=== PATIENT | male | born 1975 | race Caucasian/White ===

== ENCOUNTER 2023-02-06 07:31 | Day surgery (SDC) | payer OTHER ==
[2023-02-06] MEDS ORDERED: Sodium Chloride 0.9% 1,000 ML IV SCH (08:00)
[2023-02-06] MEDS ORDERED: Midazolam 1 MG/ML 2 ML SDV ONE (08:10)
[2023-02-06] MEDS ORDERED: fentaNYL 50 MCG/ML SDV ONE (08:10)
[2023-02-06] MEDS ORDERED: Propofol 200 MG/20 ML SDV ONE (08:11)
== END 2023-02-06 10:23 | disposition home or self-care (01) ==
LOC: JP.SDS 07:31
PROVIDERS: ATTEND Surgery
DX: Z12.11 Encounter for screening for malignant neoplasm of colon (principal); K21.9 Gastro-esophageal reflux disease without esophagitis; N41.1 Chronic prostatitis; Z79.899 Other long term (current) drug therapy
CPT/HCPCS: 45378; J2250; J2704; J3010; J7030

== ENCOUNTER 2023-03-06 07:58 | Day surgery (SDC) | payer OTHER ==
[2023-03-06] MEDS ORDERED: Acetaminophen 500 MG Tab PO ONE (08:00)
[2023-03-06] MEDS ORDERED: Bupivacaine 0.5% 50 ML MDV ONE (08:02)
[2023-03-06] MEDS ORDERED: Lidocaine 1% with EPINEPHrine 1:100,000 50 ML MDV ONE (08:02)
[2023-03-06] MEDS ORDERED: Bacitracin Oint 1 GM U/D Packet ONE (08:02)
[2023-03-06] MEDS ORDERED: Bupivacaine 0.5%/EPINEPHrine 1:200,000 50 ML MDV ONE (08:03)
[2023-03-06] MEDS ORDERED: Propofol 200 MG/20 ML SDV ONE (08:18)
[2023-03-06] MEDS ORDERED: fentaNYL 250 MCG/5 ML SDV ONE ×2 (08:18→11:32)
[2023-03-06] MEDS ORDERED: Neostigmine Methylsulfate 1 MG/ML 5 ML Syringe ONE (08:18)
[2023-03-06] MEDS ORDERED: Rocuronium 50 MG/5 ML Vial ONE ×2 (08:18→11:52)
[2023-03-06] MEDS ORDERED: Ondansetron 4 MG/2 ML SDV ONE (08:18)
[2023-03-06] MEDS ORDERED: Dexamethasone 4 MG/ML SDV ONE (08:18)
[2023-03-06] MEDS ORDERED: Glycopyrrolate 0.2 MG/ML 5 ML MDV ONE (08:18)
[2023-03-06] MEDS ORDERED: Succinylcholine 200 MG/10 ML MDV ONE (08:18)
[2023-03-06] MEDS ORDERED: Lactated Ringers 1,000 ML IV SCH (09:00)
[2023-03-06] MEDS ORDERED: ceFAZolin 2 GM in Premix Bag 1 BAG IV ONE (09:30)
[2023-03-06] MEDS ORDERED: Lactated Ringers 1,000 ML ONE (11:33)
[2023-03-06] MEDS ORDERED: fentaNYL 100 MCG/2 ML SDV ONE (12:43)
[2023-03-06] MEDS ORDERED: HYDROmorphone 0.5 MG/0.5 ML Syringe IVPUSH PRN (13:42)
[2023-03-06] MEDS ORDERED: HYDROmorphone 1 MG/ML Syringe IVPUSH PRN (13:48)
[2023-03-06] MEDS ORDERED: Acetaminophen/HYDROcodone 325-5 MG Tab PO PRN (14:20)
[2023-03-06] MEDS ORDERED: Ondansetron 4 MG/2 ML SDV IVPUSH ONE (15:56)
== END 2023-03-06 16:15 | disposition home or self-care (01) ==
LOC: JP.SDS 07:58
PROVIDERS: ATTEND Student in an Organized Health Care Education/Training Program
DX: K42.9 Umbilical hernia without obstruction or gangrene (principal); L82.1 Other seborrheic keratosis; E80.7 Disorder of bilirubin metabolism, unspecified; K21.9 Gastro-esophageal reflux disease without esophagitis; M10.9 Gout, unspecified
CPT/HCPCS: 88305; A9270-GY; C1781; J0330; J0690; J1100; J1170; J2405; J2704; J2710; J3010; J3490; J7120

== ENCOUNTER 2025-07-05 22:44 | Emergency (ER) | payer OTHER ==
[2025-07-05] MEDS ORDERED: Sodium Chloride 0.9% 10 ML Syringe FLUSH PRN (23:09)
[2025-07-05 23:18] LABS: BASOPHILS ABSOLUTE AUTO 0.03 K/uL (0.00-0.10); BASOPHILS PERCENT AUTO 0.2 % (0.1-1.3); EOSINOPHILS ABSOLUTE AUTO 0.18 K/uL (0.00-0.40); EOSINOPHILS PERCENT AUTO 1.4 % (0.0-5.4); IMMATURE GRAN ABSOLUTE AUTO 0.05 K/uL (0.00-0.23); IMMATURE GRAN PERCENT AUTO 0.4 % (0.0-0.7); LYMPHOCYTES ABSOLUTE AUTO 1.17 K/uL (0.8-3.3); LYMPHOCYTES PERCENT AUTO 8.8 % (11.4-47.7); MONOCYTES ABSOLUTE AUTO 1.03 K/uL (0.20-0.90); MONOCYTES PERCENT AUTO 7.8 % (3.3-12.6); NEUTROPHILS ABSOLUTE AUTO 10.77 K/uL (1.0-7.6); NEUTROPHILS PERCENT AUTO 81.4 % (40.0-78.1); PLATELET COUNT,PLT 171 K/uL (130-375); RED BLOOD CELL COUNT 4.92 M/uL (4.14-5.76); WHITE BLOOD CELL COUNT,WBC 13.2 K/uL (3.2-11.0)
[2025-07-05] MEDS: Iopamidol 612 MG/ML 100 ML Bottle IV SCH (23:36)
[2025-07-05] MEDS: Sodium Chloride 0.9% 10 ML Syringe FLUSH PRN (23:36)
[2025-07-05 23:39] LABS: A/G RATIO 1.3 (1.2-2.2); ALANINE AMINOTRANSFERASE,ALT 46 U/L (12-78); ASPARTATE AMNIOTRANSFERASE,AST 23 U/L (15-37); BILIRUBIN TOTAL 2.0 mg/dL (0.2-1.0); BLOOD UREA NITROGEN,BUN 15 mg/dL (7-18); CARBON DIOXIDE,CO2 29 mmol/L (21-32); CHLORIDE,CL 105 mmol/L (100-108); CREATININE 0.9 mg/dL (0.8-1.3); EST CRCL DRUG DOSING (CG) 102.52 mL/min; ESTIMATED GFR 105 mL/min (>60); GLUCOSE RANDOM 113 mg/dL (74-106); POTASSIUM,K 3.8 mmol/L (3.6-5.2); PROTEIN TOTAL,TP 7.3 g/dL (6.4-8.2); SODIUM,NA 140 mmol/L (140-148)
== END 2025-07-06 00:50 | disposition home or self-care (01) ==
LOC: JP.ED 22:44
DX: K37 Unspecified appendicitis (principal); N28.89 Other specified disorders of kidney and ureter
CPT/HCPCS: 36415; 74177; 80053; 83605; 83690; 85025; 96360; 99284; J7030; Q9967

== ENCOUNTER 2025-07-06 14:35 | Observation (INO) | payer OTHER ==
[2025-07-06] MEDS ORDERED: Scopalamine 1mg/3day Transdermal Patch TOP PRN (15:00)
[2025-07-06] MEDS ORDERED: diphenhydrAMINE 50 MG/ML SDV IVPUSH PRN (15:00)
[2025-07-06] MEDS ORDERED: fentaNYL 50 MCG/ML SDV IVPUSH PRN (15:00)
[2025-07-06] MEDS ORDERED: Ondansetron 4 MG/2 ML SDV IVPUSH PRN (15:00)
[2025-07-06] MEDS: Piperacillin/Tazobactam/Dext 4.5 GM in Premix Bag 1 BAG IV ONE (15:43)
[2025-07-06] MEDS: Piperacillin/Tazobactam/Dext 4.5 GM in Premix Bag 1 BAG IV SCH (20:30)
[2025-07-07 05:24] LABS: BASOPHILS PERCENT AUTO 0.3 % (0.1-1.3); EOSINOPHILS ABSOLUTE AUTO 0.27 K/uL (0.00-0.40); EOSINOPHILS PERCENT AUTO 4.0 % (0.0-5.4); IMMATURE GRAN PERCENT AUTO 0.3 % (0.0-0.7); LYMPHOCYTES ABSOLUTE AUTO 1.91 K/uL (0.8-3.3); LYMPHOCYTES PERCENT AUTO 28.0 % (11.4-47.7); MONOCYTES ABSOLUTE AUTO 0.83 K/uL (0.20-0.90); MONOCYTES PERCENT AUTO 12.2 % (3.3-12.6); NEUTROPHILS ABSOLUTE AUTO 3.76 K/uL (1.0-7.6); NEUTROPHILS PERCENT AUTO 55.2 % (40.0-78.1); PLATELET COUNT,PLT 154 K/uL (130-375); RED BLOOD CELL COUNT 4.62 M/uL (4.14-5.76); WHITE BLOOD CELL COUNT,WBC 6.8 K/uL (3.2-11.0)
[2025-07-07 05:34] LABS: BASOPHILS ABSOLUTE AUTO 0.02 K/uL (0.00-0.10); IMMATURE GRAN ABSOLUTE AUTO 0.02 K/uL (0.00-0.23)
[2025-07-07 05:45] LABS: BLOOD UREA NITROGEN,BUN 12.0 mg/dL (7-18); CARBON DIOXIDE,CO2 29.0 mmol/L (21-32); CHLORIDE,CL 108.0 mmol/L (100-108); CREATININE 1.1 mg/dL (0.8-1.3); EST CRCL DRUG DOSING (CG) 83.88 mL/min; ESTIMATED GFR 82.0 mL/min (>60); GLUCOSE RANDOM 105.0 mg/dL (74-106); POTASSIUM,K 4.1 mmol/L (3.6-5.2); SODIUM,NA 144.0 mmol/L (140-148)
[2025-07-07] MEDS ORDERED: Succinylcholine 200 MG/10 ML MDV ONE (09:04)
[2025-07-07] MEDS ORDERED: Glycopyrrolate 0.2 MG/ML 5 ML MDV ONE (09:04)
[2025-07-07] MEDS ORDERED: Dexamethasone 4 MG/ML SDV ONE (09:04)
[2025-07-07] MEDS ORDERED: Propofol 200 MG/20 ML SDV ONE (09:04)
[2025-07-07] MEDS ORDERED: fentaNYL 250 MCG/5 ML SDV ONE (09:04)
[2025-07-07] MEDS ORDERED: Ondansetron 4 MG/2 ML SDV ONE (09:04)
[2025-07-07] MEDS ORDERED: Ketorolac 30 MG/ML SDV ONE (10:40)
[2025-07-07] MEDS: CHECK TOP SCH (10:46)
[2025-07-07] MEDS: Bupivacaine 0.25%/EPINEPHrine 1:200,000 30 ML SDV ONE (10:48)
[2025-07-07] MEDS ORDERED: fentaNYL 100 MCG/2 ML SDV ONE ×2 (10:50→11:10)
[2025-07-07] MEDS ORDERED: Lactated Ringers 1,000 ML ONE (10:50)
[2025-07-07] MEDS: Piperacillin/Tazobactam/Dext 4.5 GM in Premix Bag 1 BAG IV SCH (12:08)
[2025-07-07] MEDS ORDERED: Acetaminophen/HYDROcodone 325-5 MG Tab PO PRN (12:41)
== END 2025-07-07 15:20 | disposition home or self-care (01) ==
LOC: JP.MS 14:35
PROVIDERS: ADMIT Surgery; ATTEND Surgery
DX: K35.30 Acute appendicitis with localized peritonitis, without perforation or gangrene (principal)
CPT/HCPCS: 00840; 36415; 44970; 80048; 85025; 88304; 96365; 96366; A4216; G0378; J0169; J0330; J0665; J1100; J1885; J2405; J2543; J2704; J2795; J3010; J7030; J7120; J1596; J2710; J3490

== ENCOUNTER 2025-09-23 10:15 | Emergency (ER) | payer OTHER ==
[2025-09-23] MEDS ORDERED: Lidocaine 2% Viscous Solution 15 ML UD PO ONE (13:45)
[2025-09-23] MEDS: Lidocaine 2% Viscous Solution 15 ML UD PO ONE (14:19)
[2025-09-23] MEDS: Sodium Chloride 0.9% 10 ML Syringe FLUSH ONE (17:38)
[2025-09-23] MEDS: Iopamidol 612 MG/ML 100 ML Bottle IV ONE (17:38)
== END 2025-09-23 15:01 | disposition home or self-care (01) ==
LOC: JP.ED 10:15
DX: J36 Peritonsillar abscess (principal); E66.9 Obesity, unspecified; Z68.42 Body mass index [BMI] 45.0-49.9, adult
CPT/HCPCS: 10160; 70491; 99283; J0665; J3490; Q9967; A9270-GY